=== PATIENT | female | born 1975 | race Caucasian/White ===

== ENCOUNTER 2017-04-29 08:28 | Inpatient (IN) | payer OTHER ==
[~2017-04-29] VITALS: Ht 160 cm; Wt 160.8 kg
--- NOTE | ~2017-04-29 | O ---
[address] [address] OPERATIVE REPORT Name: AMARIS GALLARDO Room #: 418-P [facility] IN M.R.#: [id number] Admission: 05/07/17 Attend Phys: Shonda Ramos MD, Discharge: Date of : 79 Report #: [id number] THIS REPORT FOR: //name// CC: FAM unknown Shonda Ramos DATE OF SERVICE: 05/07/2017 DATE OF SERVICE: 05/07/2017 PREOPERATIVE DIAGNOSES: 1. Diabetes mellitus. 2. Hypertension. 3. Hyperlipidemia. 4. Chronic low back pain. 5. Bilateral lower extremity joint pain. 6. Chronic pain syndrome. 7. Gastroesophageal reflux disease. 8. Morbid obesity with a BMI of 64.3. POSTOPERATIVE DIAGNOSES: 1. Diabetes mellitus. 2. Hypertension. 3. Hyperlipidemia. 4. Chronic low back pain. 5. Bilateral lower extremity joint pain. 6. Chronic pain syndrome. 7. Gastroesophageal reflux disease. 8. Morbid obesity with a BMI of 64.3. 9. Intra-abdominal adhesions. 10. Incisional ventral hernia. PROCEDURES PERFORMED: 1. Laparoscopic sleeve gastrectomy. 2. Laparoscopic lysis of adhesions. 3. Laparoscopic primary suture repair of an incarcerated incisional ventral hernia. 4. Thorough esophagogastroduodenoscopy (EGD). SURGEON: Shonda Ramos MD MASTER RIGGER: Herrera Solorio MD ANESTHESIA: General endotracheal anesthesia. ESTIMATED BLOOD LOSS: Minimal (less than 10 mL). [address] [place] [address] OPERATIVE REPORT Name: AMARIS GALLARDO Room #: 418-P [facility] IN ..#: [id number] Admission: 05/07/17 Attend Phys: Shonda Ramos MD, Discharge: Date of : 79 Report #: [id number] COMPLICATIONS: None appreciated. SPECIMENS: Laparoscopic sleeve gastrectomy specimen to pathology. INDICATIONS: The patient is a 42-year-old super morbidly obese female who has been seen for her desire for weight loss surgery as she has had a very long history of obesity and has tried numerous weight loss attempts, all to no avail. The patient has been seen in a multimodal fashion obtaining clearance from her primary care physician, from psychology, as well as from a dietitian, who have all cleared her for surgery as well as indicating it is medically necessary for weight loss and resolution of her comorbid conditions. The patient has been following with me over the past 3 months for aggressive diet and exercise attempts, which she provided a documented log of and unfortunately she has yet to lose any significant weight thus far. As such, indication was for laparoscopic sleeve gastrectomy today. Intraoperative findings of an incarcerated incisional ventral hernia in the infraumbilical location were seen that required primary suture repair. This was likely from her caesarean section. DESCRIPTION OF PROCEDURE: After explaining the risks, benefits and alternatives of the procedure with the patient in detail in the preoperative holding area and obtaining written consent, the patient was brought to the operating room and placed supine on the operating room table. After conducting a thorough timeout procedure verifying correct patient and procedure, the patient was given general endotracheal anesthesia. Once adequate anesthesia was obtained, her SCDs were hooked up to pneumatic compression device and she was given a preoperative dose of antibiotics in line with the SCIP protocol. The patient's abdomen was prepped and draped in standard surgical sterile fashion. I began the procedure by utilizing the [employer] upper endoscope to intubate the oropharynx. This was traversed down a straight esophagus into the gastric lumen where the pylorus was identified and intubated. The scope was advanced to the second portion of the duodenum where slow careful withdrawal of the EGD scope showed no evidence of duodenitis, gastritis, esophagitis, mass lesions or ulcerations. A retroflexion view of the scope within the gastric lumen showed no evidence of a hiatal hernia. The scope was straightened out with its tip at the level of the pylorus where it was taped into position and the stomach was fully desufflated. I now turned my attention to the operative portion of the procedure. After sterilely scrubbing, 5 mL of 0.5% Marcaine with epinephrine were used to anesthetize the skin in the right upper quadrant and midclavicular line in a subcostal location. A #15 bladed scalpel was used to create a 1.5 cm transverse skin incision at this location. A 15 mm Visiport was placed over 0 degree 5 mm laparoscope and was introduced through this incision site. Once intraabdominal placement was verified visually, the obturator for the trocar and laparoscope were both removed and the abdomen was insufflated to 15 mmHg using carbon dioxide gas. The laparoscope was changed to a 5-mm 30-degree laparoscope and was reintroduced [address] [address] OPERATIVE REPORT Name: AMARIS GALLARDO Room #: 418-P [facility] IN M.R.#: [id number] Admission: 05/07/17 Attend Phys: Shonda Ramos MD, Discharge: Date of : 79 Report #: [id number] through this trocar. The entire abdomen was evaluated to ensure no injury upon entry. We immediately encountered intra-abdominal adhesions; however, I was able to navigate around them and placed three additional 5 mm trocars in the left abdomen. The first was placed 2 cm cephalad to the umbilicus and 2 cm to the patient's left. An additional one was placed 5 cm lateral to that and final one was placed in the extreme left lateral flank in a subcostal location. All three additional 5 mm ports were placed under direct vision after anesthetizing the skin at each location with 5 mL of 0.5% Marcaine with epinephrine and I created small skin nicks using #15 bladed scalpel. The laparoscope was now removed and changed to the extreme left lateral 5 mm trocar and I proceeded to perform laparoscopic lysis of adhesions using the Harmonic scalpel to take down all omental adhesions from the posterior aspect of the anterior abdominal wall in the mid abdomen. Upon taking these adhesions down, we encountered an incarcerated incisional ventral hernia in the infraumbilical location. The patient had such mobile skin and subcutaneous tissue, I was able to make a stab incision in the supraumbilical location and angle a Jama-Marcus suture passer device using 0 PDS suture to perform [id number] fascial closing suture of the incarcerated hernia, which was tied down under direct vision to repair it fully in a laparoscopic fashion. As this was not at the site of any of my planned operative approach and was wholly separate from any trocar incision, this included a separate procedure all together. Once this was tied down under direct vision, the hernia itself was fully repaired. We turned our attention to the sleeve gastrectomy portion of the procedure. Laparoscope was removed, changed to 5 mm port just to the left of the umbilicus and the patient was placed in steep reverse Trendelenburg position. I then placed a Jean Paul liver retractor in the subxiphoid location by anesthetizing the skin at that location with 5 mL of 0.5% Marcaine with epinephrine and I had created a small skin thad using #15 bladed scalpel. I utilized the obturator from the 5 mm port to penetrate the fascia at this level and then maneuvered the Jean Paul retractor through this defect up under the left lobe of the liver where it was held up against the posterior aspect of the anterior abdominal wall. This was then fixed into position using the Iron Clerical Support device to stabilize it and we had complete access to the full stomach and hiatal region. Again, we saw no evidence of a hiatal hernia at this juncture. We now started our dissection after identifying our landmarks. The vein of Barnett was seen overlying the pylorus. I measured 4 cm proximal to this location and began taking down the short gastric arteries from this location all the way up the greater curvature of the stomach using the Harmonic scalpel for hemostasis. Once I arrived upon the base of the left lydia, I dissected anteriorly and now had full mobilization of the stomach. The EGD scope was positioned to run along the lesser curvature of the stomach and I proceeded to complete the sleeve gastrectomy at this time. The [place] 60 mm stapler utilizing a black load with Burkett's Sun-Strip buttressing material was placed into the abdomen through the 15 mm port. This first firing started at the location 4 cm proximal to the pylorus and fired right along, but not extremely tight to the scope, so as not to cause stricturing, especially at the incisura. Another firing of an additional black [facility] [address] [place] [address] OPERATIVE REPORT Name: AMARIS GALLARDO Room #: 418-P [facility] IN M.R.#: [id number] Admission: 05/07/17 Attend Phys: Shonda Ramos MD, Discharge: Date of : 79 Report #: [id number] load was carried out using Burkett's Sun-Strip buttressing material following the scope as a 34-[place] bougie. Five additional firings of green loads all utilizing Burkett's Sun-Strip buttressing material were carried out following the scope as a bougie all the way up to the left lydia until the stomach was completely transected. This gave us an excellently oriented sleeve of gastric remnant. The resection specimen was placed in the right upper quadrant and the staple line was evaluated. There was one area of ooze along the staple line which was controlled laparoscopic clip youth career specialist. I now utilized 14 mL of Tisseel on the Cozy Queenlospray device to coat the entirety of the staple line with fibrin glue. Once that was dry, I instilled normal saline in the upper abdomen and reactivated the EGD scope, which was then used to gently insufflate the stomach, which was held under the normal saline to perform a leak test, which was negative. Upon withdrawal of the EGD scope, the staple line was evaluated from the inside to ensure no bleeding and we had complete hemostasis throughout. The scope was used to fully desufflate the stomach that was passed off the field and I sterilely reentered the operative field once again. All normal saline was suctioned out of the abdomen and it ran clear throughout. Then, the Jean Paul liver retractor was now removed under direct vision and the liver was healthy and uninjured. The resection specimen was now grasped and removed through the 15 mm trocar under direct vision. I then closed the 15 mm fascial incision using 0 PDS suture on a Jama-Marcus needle under direct vision, which was then tied down under direct vision to ensure it did not catch a loop of bowel or omentum in the suture repair. The abdomen was now fully desufflated and all remaining ports removed under direct vision. A 4-0 Monocryl was used in a standard subcuticular fashion for all skin incisions and Dermabond glue was applied to all skin wounds. The corner of the resection specimen that had been removed was trimmed away and normal saline was passively instilled into the resection specimen yielding 1800 mL of normal saline in the resection specimen itself. At the end of the procedure, all instrument, needle and sponge counts were correct. The patient tolerated the procedure without incident. She was awakened in the operating room and transitioned to the recovery room in stable condition with no apparent complications. <ELECTRONICALLY SIGNED> By: Shonda Ramos MD, FACS 05/08/17 0955 [id number] Shonda Ramos MD, FACS /nt
--- NOTE | ~2017-04-29 | S ---
[facility] [place] [address] [place] [address] SURGICAL PATH RPT PROCEDURE Name: JEFE HERNANDEZ Room #: 418-P DIS IN M.R.#: [id number] Admission: 05/07/17 Date of : 79 Discharge: 05/09/17 Report #: [id number] Path Case #: [id number] PATHOLOGY REPORT COLLECTION DATE: 05/07/2017 RECEIVED DATE: 05/07/2017 SUBMITTING PHYS: Dr. Shonda Ramos OTHER PHYS: SPECIMEN(S) RECEIVED: A.Lateral stomach * * * * * * * * * * * * FINAL DIAGNOSIS: "Lateral stomach," partial gastrectomy: - Gastric mucosa, submucosa, and muscular wall with minimal histologic alterations. (CLW:mgr; 05/10/2017) PATHOLOGIST: Quiana Bo M.D. REPORT ELECTRONICALLY SIGNED BY: Quiana Bo M.D. DATE/TIME: 05/10/2017 21:26 * * * * * * * * * * * * GROSS PATHOLOGY: Received in formalin labeled "Jeef Hernandez, lateral stomach" is a partial gastrectomy specimen measuring 35.5 x 6.0 x 2.5 cm. The specimen is received closed with a staple line on one aspect. There is an opening on one aspect of the staple line measuring 0.5 x 0.5 cm, which extend into the lumen of the specimen. The specimen is opened to reveal that the gastric mucosa is pink-red without polyps or masses. The mucosa has unremarkable folding. C.O.D. Clerk sections of the specimen are submitted in cassettes A1-A3. ([facility]; 05/08/2017) CLINICAL HISTORY: Morbid obesity INITIAL CPT CODE(S): A; 13827 Professional services performed by [facility] at [facility] [address], [place] [address] Technical services performed by [facility] at [address] [place] [address] [place] [address] SURGICAL PATH RPT PROCEDURE Name: PAULINAJEFE Room #: 418-P DIS IN M.R.#: [id number] Admission: 05/07/17 Date of : 79 Discharge: 05/09/17 Report #: [id number] Path Case #: [id number] [place] [address]. [facility] [address] [place] [address] PHONE: [phone] DIRECTOR: Jorge Morrison M.D. * * * END OF REPORT * * *
[~2017-04-29 08:28] MED LIST: ACYCLOVIR 400400 M1 PO; ADIPEX-P37.5 MG PO; ADULT LOW DOSE81 MG PO; ALBUTEROL2.5 MG/31 INH; ALEVE220 M1; AMLODIPINE BESY10 MG PO; AMOXICILLIN 50500 M1 PO; AMOXICILLIN500 M1 PO; AUGMENTIN 875875 MG PO; AZITHROMYCIN 2250 MG PO; B-100 COMPLEX1 EAC1; BUTALB-APAP-CA1 EACH PO; CAFFEINE200 M1; CALCIUM +D & M1 EACH PO; CALCIUM OYSTER500 MG PO; CIPRO500 MG PO; CLONAZEPAM 1 MG1 M1; CLONAZEPAM 1 MG1 M1 PO; COMBIVENT INH; COUMADIN 2.5MG2.5 M1 PO; COUMADIN 5 MG TA5 M1 PO; COUMADIN7.5 MG PO; CYCLOBENZAPRINE10 MG PO; CYMBALTA20 MG PO; DIABETA 2.5MG2.5 MG; DOXYCYCLINE 10100 MG PO; ENOXAPARIN40 MG/0.1 SUBQ; ENOXAPARIN60 MG/0.6 SQ; FARXIGA5 MG PO; FIORICET 50-301 EACH PO; FIORICET 50-321 EACH PO; FISH OIL 1,0001 EAC5; FLEXERIL PO; FOLIC ACID0.8 MG PO; FROVA2.5 MG PO; GLUCOPHAGE XR750 MG PO; GLUCOPHAGE1000 MG; HUMALOG100 UNIT/1; HUMULIN N100 UNIT/1 SQ; HYDROCHLOROTH12.5 MG PO; HYDROCODON-ACE1 EA11 PO; HYDROCODONE-AP1 EAC6 PO; IBUPROFEN200 M2 PO; INDERAL LA120 MG PO; IRON; KLOR-CON 1010 MEQ PO; LABETALOL PO; LAMICTAL100 MG PO; LAMICTAL5 MG; LASIX 40 MG TAB40 M1 PO; LASIX 40 MG TAB40 M2; LASIX 40 MG TAB40 M2 PO; LATUDA40 MG PO; LEVOTHROID; LIPITOR 20 MG T20 M1 PO; LISINOPRIL5 MG PO; LOMOTIL TABLET1 EACH PO; LOPRESSOR 50 MG50 M1 PO; MAXALT MLT ODT10 MG PO; MEDROLDOSEPACK PO; MELATONIN1 MG; METHOCARBAMOL500 M2; METHYLDOPA500 MG; METHYLDOPA500 MG PO; NEURONTIN600 MG PO; NEXIUM40 MG PO; NORCO 5-325 TA1 EACH PO; NOVOLIN N100 UNIT/1; NYSTATIN15 GM TOP; OMEPRAZOLE 20 M20 M1 PO; ONDANSETRON HCL4 M2 PO; OXCARBAZEPINE600 MG; PAXIL10 MG; PERCOCET 10-321 EACH PO; PERCOCET 5-3251 EACH PO; PERCOCET 7.5-31 EACH PO; PHENADOZ25 MG RC; PHENAZOPYRIDIN200 M2 PO; PHENERGAN 25 MG25 M1 PO; PHENERGAN 25 MG25 MG PO; POTASSIUM; POTASSIUM20 PO; PREDNISONE 10 M10 M1 PO; PREDNISONE 20 M20 M1 PO; PREDNISONE 20 M20 MG PO; PREDNISONE50 MG PO; PRENATAL; PROCARDIA XL90 MG PO; PROMETHEGAN25 MG RC; PROPRANOLOL 1010 M1 PO; PROZAC 20 MG20 M1 PO; PROZAC 20 MG20 MG PO; PROZAC PO; REMERON15 MG PO; ROBAXIN 750 MG750 M1 PO; ROBAXIN 750 MG750 MG PO; SAVELLA1 EACH PO; SAVELLA50 MG PO; TESSALON PERLE100 MG PO; TIROSINT75 MCG PO; TOPAMAX 25 MG T25 M1 PO; TORADOL 10 MG T10 MG PO; TRAZODONE 150150 M1; TREXIMET 85-501 EACH; ULTRAM 50MG TAB50 MG PO; VALTREX 500 MG500 MG PO; VICODIN; VITAMIN D 5050000 I1; VITAMIN D 5050000 I1 PO; WELLBUTRIN SR150 MG; WELLBUTRIN SR150 MG PO; WELLBUTRIN XL300 MG PO; XANAX XR1 MG; XANAX1 MG PO; ZANAFLEX2 MG PO; ZANAFLEX4 M1 PO; ZOFRAN ODT4 MG PO; ZOFRAN4 MG PO; ZPAK PO; ZYRTEC 10 MG TA10 M1 PO; [UNRECOGNIZED DRUG - OTHER] PO
[2017-05-05] MEDS ORDERED: ENOXAPARIN100 MG/11 SUBQ (11:20)
[2017-05-05] MEDS ORDERED: ENDOCET 5-3251 EACH PO (11:22)
[2017-05-05] MEDS ORDERED: MULTIVITAMINS PO (11:22)
[2017-05-05] MEDS ORDERED: VENTOLIN HFA INH8 GM INH (11:44)
[2017-05-05] MEDS ORDERED: BREO ELLIPTA 11 EACH INH (11:45)
[2017-05-07 09:43] LABS: PROTIME 10.2 Seconds (9.3-11.4)
[2017-05-07 09:47] LABS: CALCIUM 9.3 mg/dL (8.5-10.1); CREATININE 1.2 mg/dL (0.6-1.0)
[2017-05-07 09:48] LABS: POTASSIUM 2.9 mmol/L (3.5-5.1)
[2017-05-07 10:00] VITALS: BP 126/85
[2017-05-07] MEDS ORDERED: OXYCODONE10 MG/0.5 PO (13:49)
[2017-05-07] MEDS ORDERED: ZOFRAN ODT4 MG DISSOLVE (13:49)
[2017-05-07 17:00] VITALS: BP 114/56
[2017-05-07 18:00] VITALS: BP 123/70
[2017-05-07 19:00] VITALS: BP 126/77
[2017-05-07 20:36] VITALS: BP 138/87
[2017-05-08] VITALS (8 sets, daily range): BP systolic 104–135; BP diastolic 59–78
[2017-05-08 04:43] LABS: HEMATOCRIT 39.1 % (37.0-47.0); HEMOGLOBIN 12.6 gm/dL (12.0-15.0); MCH 28.6 pg (26.0-34.0); MCHC 32.2 g/dL (28.0-37.0); MCV 88.7 fL (80.0-100.0); RBC 4.41 mil/uL (4.20-5.00); RDW 16.8 % (10.5-14.5); WBC 14.2 thou/uL (4.0-11.0)
[2017-05-08 04:44] LABS: CALCIUM 8.1 mg/dL (8.5-10.1); CREATININE 0.9 mg/dL (0.6-1.0); POTASSIUM 3.9 mmol/L (3.5-5.1)
[2017-05-09 01:15] VITALS: BP 101/55
[2017-05-09 04:30] VITALS: BP 134/64
[2017-05-09 08:30] VITALS: BP 99/47
[2017-05-09 14:45] VITALS: BP 135/78
[2017-05-09 15:32] VITALS: BP 135/78
== END 2017-05-09 15:39 | disposition home or self-care (01) | DRG 621 ==
LOC: EDSTATUS 08:28 → OR 11:11 → TBA 05-07 05:20 → PRE 05-07 08:29 → 4E 05-07 16:02
PROVIDERS: Surgery
PROC: 0WQF4ZZ Repair Abdominal Wall, Percutaneous Endoscopic Approach (ICD-10-PCS; principal; 2017-05-07)
PROC: 0DB64Z3 Excision of Stomach, Percutaneous Endoscopic Approach, Vertical (ICD-10-PCS; principal; 2017-05-07)
DX: E66.01 Morbid (severe) obesity due to excess calories (principal); E11.9 Type 2 diabetes mellitus without complications; I10 Essential (primary) hypertension; E78.5 Hyperlipidemia, unspecified; G89.29 Other chronic pain; K66.0 Peritoneal adhesions (postprocedural) (postinfection); M54.5 Low back pain; K21.9 Gastro-esophageal reflux disease without esophagitis; K43.2 Incisional hernia without obstruction or gangrene; Z68.44 Body mass index [BMI] 60.0-69.9, adult
CPT/HCPCS: 10183; 50010; 50101; 50222; 50249; 50386; 50555; 50739; 50740; 50962; 51436; 51437; 52182; 52265; 53307; 53311; 54022; 54118; 55245; 56462; 56525; 56526; 57092; 62110; 62900; 64031; 70005

== ENCOUNTER 2017-09-20 10:43 | Emergency (ER) | payer OTHER ==
[~2017-09-20] VITALS: Ht 160 cm; Wt 137.9 kg
[~2017-09-20 10:43] MED LIST changes: +BREO ELLIPTA 11 EACH INH; +COUMADIN6 MG; +ENDOCET 5-3251 EACH PO; +ENOXAPARIN100 MG/11 SUBQ; +LASIX 80 MG TAB80 MG PO; +MULTIVITAMINS PO; +OXYCODONE10 MG/0.5 PO; +PHENTERMINE H37.5 M1 PO; +PRILOSEC 20 MG20 MG PO; +VENTOLIN HFA INH8 GM INH; +ZANAFLEX4 MG; +ZOFRAN ODT4 MG DISSOLVE
[2017-09-20] MEDS ORDERED: COUMADIN7.5 MG PO (11:20)
[2017-09-20 11:21] LABS: URINE BILIRUBIN NEGATIVE (Negative); URINE BLOOD 3+ (Negative); URINE CLARITY CLEAR; URINE COLOR YELLOW; URINE GLUCOSE-RANDOM* NEGATIVE (Negative); URINE KETONES NEGATIVE (Negative); URINE LEUKOCYTES-REFLEX NEGATIVE (Negative); URINE NITRITE-REFLEX NEGATIVE (Negative); URINE PROTEIN (DIPSTICK) NEGATIVE (Negative); URINE SPECIFIC GRAVITY 1.025 (1.005-1.035); URINE UROBILINOGEN 0.2 E.U./dl (0.2-1.0)
[2017-09-20] MEDS ORDERED: DICLOFENAC SODI25 MG PO (11:21)
[2017-09-20 11:29] LABS: MUCUS >6 Heavy strn/LPF (None Seen); SQUAMOUS 4-10 Moderate /LPF (0-3)
[2017-09-20 11:30] LABS: CASTS None Seen /LPF (None Seen); URINE WBC-REFLEX 0-5 Rare /HPF (0-5)
[2017-09-20 11:31] LABS: CALCIUM OXALATE 0-3 Few /LPF (None Seen)
[2017-09-20 11:40] LABS: ABSOLUTE NEUTROPHILS 5.1 thou/uL (1.4-8.2); BASOPHILS 1.1 % (0.0-2.0); EOSINOPHILS 1.8 % (0.0-3.0); HEMATOCRIT 42.7 % (37.0-47.0); HEMOGLOBIN 14.1 gm/dL (12.0-15.0); LYMPHOCYTES 33.6 % (24.0-44.0); MCH 27.9 pg (26.0-34.0); MCHC 32.9 g/dL (28.0-37.0); MCV 84.7 fL (80.0-100.0); MONOCYTES 7.1 % (1.0-8.0); PLATELET COUNT 260 thou/uL (150-400); POLYS 56.4 % (36.0-66.0); RBC 5.05 mil/uL (4.20-5.00); RDW 19.5 % (10.5-14.5); WBC 9.1 thou/uL (4.0-11.0)
[2017-09-20 11:48] LABS: CALCIUM 8.6 mg/dL (8.5-10.1); CREATININE 0.8 mg/dL (0.6-1.0); POTASSIUM 3.6 mmol/L (3.5-5.1)
[2017-09-20 11:53] LABS: ALBUMIN 3.3 g/dL (3.4-5.0); TOTAL BILIRUBIN 0.3 mg/dL (<0.1-1.0); TOTAL PROTEIN 6.7 g/dL (6.4-8.2)
[2017-09-20 11:57] LABS: INR 1.5; PROTIME 15.4 Seconds (9.3-11.4)
[2017-09-20] MEDS ORDERED: PERCOCET 5-3251 EACH PO (12:50)
[2017-09-20] MEDS ORDERED: SENNA-DOCUSATE1 EACH PO (12:50)
[2017-09-20 13:35] VITALS: BP 144/82
[2017-09-23] MEDS ORDERED: VITAMIN D1000 UNI1 PO (10:17)
[2017-09-23] MEDS ORDERED: COUMADIN 5 MG TA5 M1 PO (10:17)
[2017-09-23] MEDS ORDERED: ONDANSETRON HCL4 M2 PO (10:18)
[2017-09-23] MEDS ORDERED: BUTALB-APAP-CA1 EACH PO (10:31)
[2017-09-23] MEDS ORDERED: TIZANIDINE HCL4 M1 PO (10:32)
[2017-09-23] MEDS ORDERED: LEVSIN-SL0.125 MG SUBLING (11:03)
== END 2017-09-20 13:36 | disposition home or self-care (01) ==
LOC: ER 10:43
PROVIDERS: Emergency Medicine
DX: K42.9 Umbilical hernia without obstruction or gangrene (principal); G89.29 Other chronic pain; G43.909 Migraine, unspecified, not intractable, without status migrainosus; M79.7 Fibromyalgia; I10 Essential (primary) hypertension; E03.9 Hypothyroidism, unspecified; J45.909 Unspecified asthma, uncomplicated; K21.9 Gastro-esophageal reflux disease without esophagitis; G47.30 Sleep apnea, unspecified; F17.210 Nicotine dependence, cigarettes, uncomplicated; Z88.5 Allergy status to narcotic agent; Z88.8 Allergy status to other drugs, medicaments and biological substances

== ENCOUNTER → 2017-09-23 | Outpatient (CLI) | payer OTHER ==
[~2017-09-23] VITALS: Ht 160 cm; Wt 137.9 kg
[~2017-09-23] MED LIST changes: +DICLOFENAC SODI25 MG PO; +LEVSIN-SL0.125 MG SUBLING; +SENNA-DOCUSATE1 EACH PO; +TIZANIDINE HCL4 M1 PO; +VITAMIN D1000 UNI1 PO
--- NOTE | ~2017-09-23 | HPC ---
[facility] [place] [address] PAIN MANAGEMENT CONSULTATION Name: AMARIS GALLARDO Room #: REG [facility] Elder.#: [id number] Admission: 09/23/17 Attend Phys: Herrera Griffin DO Discharge: Date of : 79 Report #: [id number] THIS REPORT FOR: //name// CC: Ashok Griffin HISTORY OF PRESENT ILLNESS: The patient is an unfortunate 42-year-old female seen in consultation at the request of Dr. Ramos for assistance with right sciatic pain and abdominal pain. The patient presents to the pain clinic today complaining primarily of abdominal pain. She has multiple pain generators and psychiatric overlay. She had a gastric sleeve on 05/07/2017. She has lost 72 pounds since surgery. She notes in June, she started to have abdominal pain from about her umbilicus down to the pelvis. Apparently, she followed up with her POWER CRANE OPERATOR surgeon, the patient claims a POWER CRANE OPERATOR surgeon found an umbilical hernia. There is a CT scan of the abdomen obtained on 07/05/2017. Findings note post-surgical changes of interval gastric sleeve surgery and small fat containing periumbilical hernia, small hiatal hernia, mild hepatomegaly. Note from Dr. Ramos's office dated 09/08/2017 references the aforementioned abdominal CT scan, recommendation was that patient wait at least 6 more months to achieve optimal weight loss and then proceed with a repair of her small incisional and hiatal hernias. "If her small incisional hernia becomes problematic, we can always proceed with definitive surgical repair of that anytime, followed by her hiatal hernia repair down the road." She was referred to the pain clinic specifically by Dr. Ramos "because of her chronic pain disorder and narcotic abuse". Apparently, the patient has been prescribed hydrocodone for pain with dwindling efficacy. Regarding low back and right lateral leg pain, she states she feels like she has "hot knives" stabbing in her leg. She denies bowel or bladder continence changes or weakness. Does note some subjective paresthesia what appears to be in L4 distribution. The patient rates her pain an 8-10 on a visual analog scale. REVIEW OF SYSTEMS: Complete review of systems attached to chart and was gone over with the patient. She is . She has a 2-year smoking history, states she smokes half pack of cigarettes a day, does not drink alcohol to excess. History of chronic migraine headaches. She has hypertension treated with amlodipine and propranolol. History of PE and "lupus anticoagulant factor." Anticoagulated with warfarin. History of hypothyroidism for which she takes levothyroxine, history of gastroesophageal reflux for which she takes omeprazole. States she was diagnosed with sarcoidosis in 2009 following a thoracotomy. Was unable to take steroids due to her weight up at that time. [address] [address] PAIN MANAGEMENT CONSULTATION Name: AMARIS GALLARDO Iain Room #: REG CONNOR Salas#: [id number] Admission: 09/23/17 Attend Phys: Herrera Griffin DO Discharge: Date of : 79 Report #: [id number] Diagnosed with depression, bipolar disorder, chronic anxiety. Tragically, the patient has lost 2 intrauterine pregnancies due to miscarriages and had a child of SIDS at 3 months of age. She states that she has been hospitalized for suicidal ideation following all three of these events. She is on multiple central acting agents including Latuda, mirtazapine, Savella, Cymbalta, fluoxetine, Topamax, gabapentin, and Xanax 1 mg prescribed t.i.d., but she states she takes it b.i.d. She has been disabled due to psychiatric diagnoses and sarcoma since 2009. Pain impact score is quite high, averaging 67/70. PHYSICAL EXAMINATION: Reveals a 5 feet 3 inches, 304 pounds female, BMI remains elevated at 53.9 kilograms per meter squared. Blood pressure is 151/100, pulse 93, respirations 20. Cranial nerves 2-12 are grossly intact. Pupils equal and react to light and accommodation. Extraocular muscles are intact. There is no nystagmus. Lateral gaze deviation. She is alert and oriented to person, place and time, though somewhat of a flat affect. Cervical range of motion is adequate. Thyroid is unremarkable. Upper extremity strength is preserved. Heart is regular and rhythmical without murmur. Lungs are clear to auscultation. Endomorphic build with a moderately pendulous abdomen. Rises from the chair. Gait is tandem. Lumbar flexion is limited to 80 degrees. Does have a small infraumbilical hernia palpable with abdominal flexion. Normal borborygmi. Diffuse abdominal tenderness. No rebound, masses or guarding is noted. Lower extremity strength is symmetric at 4/5 to all muscle groups tested. Lumbar flexion is limited to 80 degrees. Other than the aforementioned abdominal CT, there are no other diagnostic studies available at this time. ASSESSMENT: 1. Chronic pain syndrome requiring high risk complex medication management, chronic debility and core instability. 2. Umbilical hernia repair by clinical exam and diagnosis. 3. Morbid obesity. 4. Significant psychiatric disease with component of complicated grief on multiple central acting agents including benzodiazepine (Xanax). RECOMMENDATIONS: 1. Long discussion with the patient today about therapeutic options. Opiate analgesics have not been shown to improve functional status for chronic pain syndrome without definitive etiology. The patient does not have classic radicular symptoms. She has diffuse abdominal pain and chronic headaches, though she is on propranolol and Topamax and does note a reasonable efficacy [facility] [address] [place] [address] PAIN MANAGEMENT CONSULTATION Name: AMARIS GALLARDO Room #: REG CONNOR Friedman.#: [id number] Admission: 09/23/17 Attend Phys: Herrera Griffin DO Discharge: Date of : 79 Report #: [id number] stating that her migraines are perhaps twice a week. Opiate analgesics are contraindicated for headaches as analgesic rebound tend to be amplified with headaches. 2. Today, I did order an MRI of the lumbar spine for subtle right L4 radicular pain concerns. This, however, will likely not significantly change treatment as I would be loathe to have the patient get off of her anticoagulant simply for an epidural injection for minor L4 radicular symptoms. 3. We will trial Levsin 0.125 t.i.d. sublingual p.r.n. for abdominal pain due to a smooth muscle spasm. 4. We will strongly recommend physical therapy, referral given for core stability and aerobic exercises to help with chronic axial pain, chronic debility and core instability. Thank you for allowing me to participate in the patient's care. We will plan on following up in 4 weeks for reevaluation. If the patient still has ongoing pain concerns and interfere with function, I would entertain the possibility of starting her on low dose buprenorphine as this opiate analgesic does have a ceiling effect and less abuse incidence compared to conventional short acting opiates. <ELECTRONICALLY SIGNED> By: Herrera Griffin DO 09/27/17 0715 1227 09 Herrera Griffin DO /nt
[2017-09-23 10:19] VITALS: BP 151/100
== END ==
LOC: PAIN 06:47
DX: G89.4 Chronic pain syndrome (principal); R53.81 Other malaise; M53.2X9 Spinal instabilities, site unspecified; E66.01 Morbid (severe) obesity due to excess calories; F99 Mental disorder, not otherwise specified; Z79.899 Other long term (current) drug therapy